=== PATIENT | female | born 1990 | race Hispanic/Latino ===

== ENCOUNTER 2018-05-19 23:53 | Emergency (ER) | payer MEDICAID, OTHER ==
[2018-05-20] MEDS ORDERED: HYDROcodone 7.5MG/APAP 325MG 1 EA TAB PO ONE (00:12)
[2018-05-20] MEDS ORDERED: ALUM & MAG HYDROX-SIMETHICONE 30 ML, LIDOCAINE VISCOUS 2% 15 ML PO ONE ×2 (00:12)
[2018-05-20] MEDS ORDERED: KETOROLAC TROMETHAMINE INJ 30 MG/ML VIAL IM ONE (00:12)
[2018-05-20] MEDS ORDERED: ALUM & MAG HYDROX-SIMETHICONE 30 ML UD ONE (00:23)
[2018-05-20] MEDS ORDERED: LIDOCAINE HCL 2% (MOUTH-THROAT) 15 ML UD ONE (00:23)
[2018-05-20] MEDS ORDERED: SODIUM CHLORIDE 0.9% 1000ML 1,000 ML IVS ONE (00:39)
--- NOTE | 2018-05-20 01:03 | RAD ---
ABDOMINAL SERIES WITH CHEST. 05/20/2018 CLINICAL HISTORY: Acute left abdominal pain. COMPARISON: None. TECHNIQUE: Single frontal chest and supine upright AP abdomen. FINDINGS: Chest: Normal cardiac size. Cardiomegaly subchondral normal. Normal pulmonary vessel area. Lungs and pleural spaces are clear. Lungs are hyperinflated. ABDOMEN: There is mild scattered air within the small and large bowel loops without abnormal dilatation to suggest ileus or obstruction. No free air. No pathologic calcifications. Solid visceral organ shadows appear normal. Unremarkable soft tissues and bones. IMPRESSION: 1. Hyperinflation. No acute chest disease. 2. Unremarkable abdomen. Electronically signed by: Keyanna Waterman DO 05/20/2018 1:00 AM [employer] SPECIALIST
[2018-05-20] MEDS ORDERED: TAMSULOSIN 0.4 MG CAP PO ONE (01:12)
[2018-05-20 01:21] VITALS: O2SAT 99
--- NOTE | 2018-05-20 02:10 | ED.PDOC ---
History of Present Illness - General Chief Complaint: Abdominal Pain Stated Complaint: sharp constant pain, left side Time Seen by Provider: 05/19/18 23:56 Source: patient Exam Limitations: no limitations - History of Present Illness Initial Comments: the patient is a 28-year-old female presenting secondary to abrupt onset of left mid to upper abdominal pain that is very deep in nature. Pain is very severe. No symptoms immediately prior. Mild nausea. No history of any kidney stones. Timing/Duration: 1/2 hour Severity: severe Improving Factors: nothing Worsening Factors: nothing Allergies/Adverse Reactions: Allergies NO KNOWN ALLERGY Allergy (Verified 05/20/18 00:10) Review of Systems - Review of Systems Constitutional: States: no symptoms reported EENTM: States: no symptoms reported Respiratory: States: no symptoms reported Cardiology: States: no symptoms reported Gastrointestinal/Abdominal: States: see HPI Genitourinary: States: see HPI Musculoskeletal: States: see HPI Skin: States: no symptoms reported Neurological: States: no symptoms reported Endocrine: States: no symptoms reported All other Systems: No Change from Baseline Past Medical History (General) - Patient Medical History Hx Seizures: No Hx Asthma: No Hx of COPD: No Hx Cardiac Disorders: No Hx Congestive Heart Failure: No Hx Pacemaker: No Hx Hypertension: No Hx Diabetes: No Hx Gastroesophageal Reflux: Yes - hx gastric ulcer Surgical History: other - Vaccination History Hx Tetanus, Diphtheria Vaccination: No Hx Influenza Vaccination: No Hx Pneumococcal Vaccination: No - Social History Hx Tobacco Use: No Hx Alcohol Use: Yes - at younger age Hx Substance Use: No Hx Depression: No - Female History Patient is a Female of Child Bearing Age (10 -59 yrs old): Yes Patient : No Family Medical History - Family History Mother Family History: Unknown Father Hx Family Hypertension: Yes Physical Exam - Physical Exam General Appearance: Alert, Obvious distress Eye Exam: bilateral normal Ears, Nose, Throat: hearing grossly normal, normal pharynx Neck: full range of motion, supple Respiratory: lungs clear, normal breath sounds, no respiratory distress, no accessory muscle use Cardiovascular/Chest: normal peripheral pulses, regular rate, rhythm, no edema Peripheral Pulses: radial,right: 2+, radial,left: 2+, dorsalis pedis,right: 2+, dorsalis pedis,left: 2+ Gastrointestinal/Abdominal: non tender, soft Rectal Exam: deferred Back Exam: no CVA tenderness, no vertebral tenderness Extremity: non-tender, normal inspection, no pedal edema, normal capillary refill Neurologic: appointment setter II-XII nml as tested, alert, normal mood/affect, oriented x 3 Skin Exam: normal color Comments: Vital Signs - 24 hr 05/20/18 05/20/18 00:01 01:20 Temperature 98.2 F 98.2 F Pulse Rate [ 73 71 left] Respiratory 18 18 Rate Blood Pressure 165/106 102/66 [left] O2 Sat by Pulse 100 99 Oximetry Progress - Progress Progress: 05/20/18 02:10 the patient's 28-year-old female presenting to the emergency room s econdary to abrupt onset abdominal pain. When combined with her urinalysis results the most likely etiology is the passage of a small kidney stone in the left. The patient has responded well to IV fluids, pain medications and a dose of Flomax. She needs to keep herself well hydrated. She can take Aleve twice daily as needed for the next few days to help reduce irritation. She does need to increase fluid intake to prevent further stone formation. Obviously if the patient's symptoms come back significantly or worsen then additional workup may be warranted. Otherwise plan on following up with primary care doctor later in the coming week. She does need to have a repeat urinalysis to document clearing in a week or 2. - Results/Orders Results/Orders: Laboratory Tests 05/20/18 05/20/18 00:12 00:15 Urine Color Laura H Urine Appearance Sl cloudy Urine pH 6.0 Ur Specific [place] >= 1.030 Urine Protein 100 H Urine Glucose (UA) Negative Urine Ketones Trace Urine Blood Large H Urine Nitrite Negative Urine Bilirubin Moderate Urine Urobilinogen 1.0 Ur Leukocyte Esterase Negative Urine RBC 30-40 H Urine WBC 5-10 H Ur Epithelial Cells 5-10 Urine Bacteria 1+ Urine HCG, Qual Negative Departure - Departure Clinical Impression: Ureterolithiasis Disposition: Discharge to Home or Self Care Condition: Fair Departure Forms: ED Discharge - Pt. Copy, Patient Portal Self Enrollment Instructions: Kidney Stones (DC) Diet: regular diet Activity: increase activity as tolerated Additional Instructions: the patient's 28-year-old female presenting to the emergency room secondary to abrupt onset abdominal pain. When combined with her urinalysis results the most likely etiology is the passage of a small kidney stone in the left. The patient has responded well to IV fluids, pain medications and a dose of Flomax. She needs to keep herself well hydrated. She can take Aleve twice daily as needed for the next few days to help reduce irritation. She does need to increase fluid intake to prevent further stone formation. Obviously if the patient's symptoms come back significantly or worsen then additional workup may be warranted. Otherwise plan on following up with primary care doctor later in the coming week. She does need to have a repeat urinalysis to document clearing in a week or 2.
[2018-05-20 02:29] VITALS: BP 104/61; TEMP 97.1
== END 2018-05-20 02:26 | disposition home or self-care (01) ==
LOC: ER 23:53
DX: N20.1 Calculus of ureter (principal); Z87.11 Personal history of peptic ulcer disease
CPT/HCPCS: 74019; 81001; 81025; J1885; J7030

== ENCOUNTER 2019-03-04 14:22 | Emergency (ER) | payer OTHER ==
[2019-03-04] MEDS ORDERED: SODIUM CHLORIDE 0.9% (FLUSH) 10 ML SYG IV PRN (14:58)
[2019-03-04] MEDS ORDERED: ONDANSETRON INJ 4 MG/2 ML VIAL IV ONE (14:58)
[2019-03-04] MEDS ORDERED: KETOROLAC TROMETHAMINE INJ 30 MG/ML VIAL IV ONE (14:58)
--- NOTE | 2019-03-04 15:40 | ED.PDOC ---
History of Present Illness - General Chief Complaint: Abdominal Pain Stated Complaint: Abdomnial pain x 2 days Time Seen by Provider: 03/04/19 14:40 Information Source: patient, RN notes reviewed, Vital Signs reviewed Exam Limitations: no limitations - History of Present Illness Initial Comments: Patient is a 29-year-old female who presents with complaints of abdominal pain. This started approximately 2 days ago. Yesterday she took some stool softener with good results but the pain has returned today. The pain started out periumbilically and has moved to her right lower quadrant. Patient denies any headaches, dizziness, fevers, chills, nausea, vomiting.Pain is worse with palpation or movement. It is better when she rests and sits still.Pain is a 6 out of 10 at its worst. Currently she is at 4 out of 10.Patient denies similar symptoms in the past. She states this feels differently than her GERD or Menstrual cramps. Abdominal Pain Onset Location: RLQ, periumbilical Pain Radiation: RLQ Quality: moderate, aching, stabbing Timing/Duration: days - 2 days, intermittent - Worsened over the last 12 hours. Improving Factors: rest Worsening Factors: movement Associated Symptoms: denies symptoms Review of Systems - Review of Systems Constitutional: States: see HPI, weakness. Denies: chills, fever EENTM: States: no symptoms reported Respiratory: States: no symptoms reported, see HPI. Denies: cough, orthopnea, short of breath Cardiology: States: no symptoms reported. Denies: chest pain, palpitations Gastrointestinal/Abdominal: States: see HPI, abdominal pain, constipation - 2 days ago but she took laxatives and those improved her symptoms.. Denies: diarrhea, nausea, vomiting Genitourinary: States: see HPI. Denies: discharge, dysuria, frequency, hematuria, pain Musculoskeletal: States: no symptoms reported Skin: States: no symptoms reported Neurological: States: no symptoms reported Endocrine: States: no symptoms reported Hematologic/Lymphatic: States: no symptoms reported All other Systems: Reviewed and Negative Past Medical History (General) - Patient Medical History Hx Seizures: No Hx Stroke: No Hx Asthma: No Hx of COPD: No Hx Cardiac Disorders: No Hx Congestive Heart Failure: No Hx Pacemaker: No Hx Hypertension: No Hx Diabetes: No Hx Gastroesophageal Reflux: Yes - hx gastric ulcer Surgical History: other - Vaccination History Hx Tetanus, Diphtheria Vaccination: No Hx Influenza Vaccination: No Hx Pneumococcal Vaccination: No Immunizations Up to Date: No - Social History Hx Tobacco Use: No Hx Alcohol Use: Yes - Social/rarely Hx Substance Use: No Hx Substance Use Treatment: No Hx Depression: No - Female History Patient is a Female of Child Bearing Age (10 -59 yrs old): Yes Patient : No Family Medical History - Family History Mother Family History: Unknown Father Family History: Unknown Living Status: Still Living Hx Family Hypertension: Yes Physical Exam - Physical Exam General Appearance: Alert, Comfortable, Well Developed, Well Groomed, Well Hydrated, Well Nourished Eyes, Ears, Nose, Throat Exam: PERRL/EOMI, normal ENT inspection, pharynx normal Neck: non-tender, full range of motion, supple, normal inspection Respiratory: chest non-tender, lungs clear, normal breath sounds, no respiratory distress, no accessory muscle use Cardiovascular/Chest: normal peripheral pulses, regular rate, rhythm, no edema, no gallop, no JVD, no murmur Peripheral Pulses: No deficit Gastrointestinal/Abdominal: normal bowel sounds, soft, no organomegaly, no pulsatile mass, rebound, tenderness - Right lower quadrant, Positive psoas sign and obturator sign. Negative heel tap. Back Exam: normal inspection, no CVA tenderness, no vertebral tenderness Extremity: normal range of motion, non-tender, normal inspection, no pedal edema, no calf tenderness Neurologic: publishing manager II-XII nml as tested, no motor/sensory deficits, alert, normal mood/affect Skin Exam: normal color, warm/dry Lymphatic: no adenopathy Progress - Progress Progress: Differential diagnosis: Acute appendicitis, bowel obstruction, gastroenteritis, pyelonephritis among others. 03/04/19 16:38 CT shows patient with early acute appendicitis. Patient request transfer to [facility] for [facility]. I have discussed this with Dr. Littlejohn who accepts the patient for admission. Plan transfer at this time. Mahad Colon M.D. #[id number] - Results/Orders Results/Orders: 03/04/19 14:58 Sodium Chloride 0.9% (Flush) [Saline Flush Syringe] 10 ml IV PRN PRN 03/04/19 15:00 EKG STAT Laboratory Results - last 24 hr 03/04/19 03/04/19 03/04/19 15:26 15:26 15:26 WBC 7.5 RBC 3.93 L Hgb 12.5 Hct 37.2 MCV 94.6 MCH 31.7 H MCHC 33.5 RDW 12.3 Plt Count 233 MPV 8.9 Absolute Neuts (auto) 3.50 Absolute Lymphs (auto) 3.40 Absolute Monos (auto) 0.50 Absolute Eos (auto) 0.10 Absolute Basos (auto) 0.00 Neutrophils % 46.8 Lymphocytes % 45.1 Monocytes % 6.5 Eosinophils % 1.0 Basophils % 0.6 Sodium 138 Potassium 4.1 Chloride 104 Carbon Dioxide 23 Anion Gap 15.1 BUN 17 Creatinine 0.64 BUN/Creatinine Ratio 26.6 H Random Glucose 93 Serum Osmolality 276.9 Calcium 9.2 Total Bilirubin 1.3 H Direct Bilirubin 0.2 Indirect Bilirubin 1.1 H AST 23 ALT 16 Alkaline Phosphatase 67 Serum Total Protein 8.4 H Albumin 4.5 Lipase 31 Serum HCG, Qual Urine Color Urine Appearance Urine pH Ur Specific [place] Urine Protein Urine Glucose (UA) Urine Ketones Urine Blood Urine Nitrite Urine Bilirubin Urine Urobilinogen Ur Leukocyte Esterase Urine RBC Urine WBC Ur Epithelial Cells Amorphous Sediment Urine Bacteria Urine Mucus Urine HCG, Qual 03/04/19 03/04/19 15:26 15:26 WBC RBC Hgb Hct MCV MCH MCHC RDW Plt Count MPV Absolute Neuts (auto) Absolute Lymphs (auto) Absolute Monos (auto) Absolute Eos (auto) Absolute Basos (auto) Neutrophils % Lymphocytes % Monocytes % Eosinophils % Basophils % Sodium Potassium Chloride Carbon Dioxide Anion Gap BUN Creatinine BUN/Creatinine Ratio Random Glucose Serum Osmolality Calcium Total Bilirubin Direct Bilirubin Indirect Bilirubin AST ALT Alkaline Phosphatase Serum Total Protein Albumin Lipase Serum HCG, Qual Negative Urine Color Yellow Urine Appearance Clear Urine pH 6.0 Ur Specific [place] 1.025 Urine Protein Negative Urine Glucose (UA) Negative Urine Ketones Trace Urine Blood Negative Urine Nitrite Negative Urine Bilirubin Negative Urine Urobilinogen 0.2 Ur Leukocyte Esterase Trace H Urine RBC 0-1 Urine WBC 5-10 H Ur Epithelial Cells 10-20 Amorphous Sediment 2+ Urine Bacteria 1+ Urine Mucus Small Urine HCG, Qual Cancelled EXAM DESCRIPTION: Abdoment/Pelvis w/o Contrast CLINICAL HISTORY: 29 years Female, Periumbilical and RLQ pain. COMPARISON: Radiographs of the abdomen dated 05/20/2018. TECHNIQUE: Contiguous 3 mm axial images were obtained from the lung bases to the level of the proximal femora without the administration of intravenous or oral contrast. Sagittal and coronal reconstructions were reviewed. FINDINGS: Limited evaluation of the solid organs due to the lack of intravenous contrast. THORAX: The imaged lower thorax demonstrates no gross abnormality. LIVER: The liver demonstrates normal size and density with no intrahepatic biliary ductal dilatation. GALLBLADDER: Not well distended limiting detailed evaluation. PANCREAS: Appears normal with no cystic or solid lesions. SPLEEN: Normal ADRENAL GLANDS: Normal with no nodules or masses. KIDNEYS: Multiple hyperdense foci are noted in the bilateral renal calyces. Findings could represent medullary nephrocalcinosis. The visualized ureters appear grossly unremarkable. STOMACH: Not well distended limiting detailed evaluation. SMALL BOWEL: The small bowel loops demonstrate variable degrees of distention with no abnormal dilatation or other signs to suggest bowel obstruction. LARGE BOWEL: Majority of the colon is not well-distended limiting detailed evaluation. Tubular blind-ending structure in the right lower quadrant demonstrates wall thickening and mild surrounding inflammatory stranding, concerning for acute appendicitis. No evidence of perforation or abscess formation. No evidence of free intraperitoneal air or fluid. RETROPERITONEUM: The abdominal aorta is nonaneurysmal with no significant atherosclerosis. The inferior vena cava is normal in size and caliber. Few subcentimeter mesenteric lymph nodes are identified. URINARY BLADDER: Not well distended limiting detailed evaluation. The uterus and adnexa appear normal. ADDITIONAL FINDINGS: None. BONES: No significant degenerative changes are identified in the visualized bones.No evidence of osteophytic or osteoblastic lesions. IMPRESSION: Tubular blind-ending structure in the right lower quadrant demonstrates wall thickening and mild surrounding inflammatory stranding, concerning for acute appendicitis. No evidence of perforation or abscess formation. This exam was performed according to our departmental dose- optimization program, which includes automated exposure control, adjustment of the mA and/or kV according to patient size and/or use of iterative reconstruction technique. Electronically signed by: Felicia Vaca MD 03/04/2019 4:01 Departure - Departure Clinical Impression: Appendicitis, acute Qualifiers: Acute appendicitis type: with localized peritonitis Appendicitis gangrene presence: unspecified whether gangrene present Appendicitis perforation presence: without perforation Appendicitis abscess presence: without abscess Qualified Code(s): K35.30 - Acute appendicitis with localized peritonitis, without perforation or gangrene Time of Disposition: 16:40 Disposition: Discharge to Home or Self Care Condition: Good Departure Forms: ED Discharge - Pt. Copy, Patient Portal Self Enrollment Instructions: DI for Abdominal Pain-Adult Diet: other - N.p.o. Transfer to Outside Facility - Transfer Information Decision to Transfer Date: 03/04/19 Decision to Transfer Time: 16:39 Reason for Transfer: required specialist not available Accepting Provider:: Dr. Littlejohn Accepting Facility: [facility]
--- NOTE | 2019-03-04 16:02 | CT ---
EXAM DESCRIPTION: Abdoment/Pelvis w/o Contrast CLINICAL HISTORY: 29 years Female, Periumbilical and RLQ pain. COMPARISON: Radiographs of the abdomen dated 05/20/2018. TECHNIQUE: Contiguous 3 mm axial images were obtained from the lung bases to the level of the proximal femora without the administration of intravenous or oral contrast. Sagittal and coronal reconstructions were reviewed. FINDINGS: Limited evaluation of the solid organs due to the lack of intravenous contrast. THORAX: The imaged lower thorax demonstrates no gross abnormality. LIVER: The liver demonstrates normal size and density with no intrahepatic biliary ductal dilatation. GALLBLADDER: Not well distended limiting detailed evaluation. PANCREAS: Appears normal with no cystic or solid lesions. SPLEEN: Normal ADRENAL GLANDS: Normal with no nodules or masses. KIDNEYS: Multiple hyperdense foci are noted in the bilateral renal calyces. Findings could represent medullary nephrocalcinosis. The visualized ureters appear grossly unremarkable. STOMACH: Not well distended limiting detailed evaluation. SMALL BOWEL: The small bowel loops demonstrate variable degrees of distention with no abnormal dilatation or other signs to suggest bowel obstruction. LARGE BOWEL: Majority of the colon is not well-distended limiting detailed evaluation. Tubular blind-ending structure in the right lower quadrant demonstrates wall thickening and mild surrounding inflammatory stranding, concerning for acute appendicitis. No evidence of perforation or abscess formation. No evidence of free intraperitoneal air or fluid. RETROPERITONEUM: The abdominal aorta is nonaneurysmal with no significant atherosclerosis. The inferior vena cava is normal in size and caliber. Few subcentimeter mesenteric lymph nodes are identified. URINARY BLADDER: Not well distended limiting detailed evaluation. The uterus and adnexa appear normal. ADDITIONAL FINDINGS: None. BONES: No significant degenerative changes are identified in the visualized bones.No evidence of osteophytic or osteoblastic lesions. IMPRESSION: Tubular blind-ending structure in the right lower quadrant demonstrates wall thickening and mild surrounding inflammatory stranding, concerning for acute appendicitis. No evidence of perforation or abscess formation. This exam was performed according to our departmental dose-optimization program, which includes automated exposure control, adjustment of the mA and/or kV according to patient size and/or use of iterative reconstruction technique. Electronically signed by: Felicia Vaca MD 03/04/2019 4:01 PM [employer]ATOR [employer]
[2019-03-04] MEDS ORDERED: PIPERACILLIN/TAZOBACTAM 4.5 GM in SODIUM CHLORIDE 0.9% 100ML 100 ML IVPB ONE (16:28)
[2019-03-04] MEDS ORDERED: SODIUM CHLORIDE 0.9% 100ML 100 ML IVPB ONE (16:40)
[2019-03-04] MEDS ORDERED: PIPERACILLIN/TAZOBACTAM 2.25 GM VIAL IVPB ONE (16:40)
[2019-03-04 18:03] VITALS: BP 118/67; TEMP 99; O2SAT 97
== END 2019-03-04 18:00 | disposition home or self-care (01) ==
LOC: ER 14:22
DX: K35.30 Acute appendicitis with localized peritonitis, without perforation or gangrene (principal); Z87.11 Personal history of peptic ulcer disease
CPT/HCPCS: 36415; 74176; 80048; 80076; 81001; 83690; 84703; 85025; J1885; J2405; J2543; J7050